=== PATIENT | female | born 1980 | race Caucasian/White ===

== ENCOUNTER 2024-09-18 18:27 | Emergency (ER) | payer OTHER, SELFPAY ==
--- NOTE | ~2024-09-18 | CT_ITS ---
EXAMINATION: CT HEAD WITHOUT CONTRAST CT CERVICAL SPINE WITHOUT CONTRAST CLINICAL INFORMATION: Posterior head strike, neck pain COMPARISON: None TECHNIQUE: A noncontrast CT of the head and a noncontrast CT of the cervical spine with sagittal and coronal reformats. This CT examination was performed using dose optimization techniques as appropriate, variously including the following: *Automated exposure control *Adjustment of mA and/or kV according to patient size (this includes techniques or standardized protocols for targeted exams where dose is matched to indication/reason for exam; i.e. extremities or head) *Use of iterative reconstruction technique DLP: 984 mGy*cm FINDINGS: No intra-axial or extra-axial hemorrhage. No acute territorial infarct. Ventricles and sulci appear normal. Preservation of hartley-white matter differentiation. No mass, mass effect, or midline shift. No fracture. Partial opacification of the right maxillary sinus. The mastoid air cells and visualized paranasal sinuses are otherwise clear. Left posterior scalp hematoma. Normal alignment of the cervical spine. No fracture. No prevertebral soft tissue swelling. 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 Mild multilevel degenerative disc disease. CT/CT head/brain wo IV con IMPRESSION: 1. No acute intracranial abnormality. 2. No cervical spine fracture or traumatic subluxation. Electronically signed by: Dominick Freed MD 09/18/2024 08:18 PM EDT
--- NOTE | ~2024-09-18 | CT_ITS ---
EXAMINATION: CT HEAD WITHOUT CONTRAST CT CERVICAL SPINE WITHOUT CONTRAST CLINICAL INFORMATION: Posterior head strike, neck pain COMPARISON: None TECHNIQUE: A noncontrast CT of the head and a noncontrast CT of the cervical spine with sagittal and coronal reformats. This CT examination was performed using dose optimization techniques as appropriate, variously including the following: *Automated exposure control *Adjustment of mA and/or kV according to patient size (this includes techniques or standardized protocols for targeted exams where dose is matched to indication/reason for exam; i.e. extremities or head) *Use of iterative reconstruction technique DLP: 984 mGy*cm FINDINGS: No intra-axial or extra-axial hemorrhage. No acute territorial infarct. Ventricles and sulci appear normal. Preservation of hartley-white matter differentiation. No mass, mass effect, or midline shift. No fracture. Partial opacification of the right maxillary sinus. The mastoid air cells and visualized paranasal sinuses are otherwise clear. Left posterior scalp hematoma. Normal alignment of the cervical spine. No fracture. No prevertebral soft tissue swelling. 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 Mild multilevel degenerative disc disease. CT/CT cervical spine wo IV con IMPRESSION: 1. No acute intracranial abnormality. 2. No cervical spine fracture or traumatic subluxation. Electronically signed by: Dominick Freed MD 09/18/2024 08:18 PM EDT
[2024-09-18 18:34] VITALS: BP 158/82; PULSE 86; O2SAT 98
[2024-09-18 18:46] VITALS: BP 129/83; PULSE 75; RESP 20; TEMP 37.1; O2SAT 100; BMI 32.3
--- NOTE | 2024-09-18 18:48 | ED_ITS ---
HPI - Fall General Chief Complaint: Fall Stated Complaint: FALL HIT BACK OF HEAD ON PAVEMENT Time Seen by Provider: 09/18/24 21:55 Source: patient Limitations: no limitations History of Present Illness ED Provider: Sharon Phan PA-C HPI Narrative: 43-year-old female presents after fall. Patient was getting on her vehicle, she subsequently tripped, hitting the back of her head. She has a lump at the site. Associated headache. Denies loss of consciousness or use of blood thinners. Related Data Previous Rx's ?Medication ?Instructions ?Recorded acetaminophen 500 mg tablet 1,000 mg (2 x 500 mg) PO Q8H PRN 09/19/24 (Acetaminophen Pain Relief) pain #20 tabs ibuprofen 600 mg tablet 600 mg PO Q6H PRN pain #14 tabs 09/19/24 Allergies Allergy/AdvReac Type Severity Reaction Status Date / Time No Known Allergies Allergy Verified 09/18/24 18:47 Review of Systems Review of Systems: Yes all other systems are reviewed and are negative Constitutional: Constitutional: Denies fatigue, Denies fever(s) and Reports headache(s) ENT: Denies dizziness, Reports headache(s) and Denies neck pain Cardiovascular: Cardiovascular: Denies chest pain and Denies dyspnea Respiratory: Respiratory: Denies dyspnea Gastrointestinal: Gastrointestinal: Denies nausea and Denies vomiting Musculoskeletal: Musculoskeletal: Denies neck pain Neurologic: Denies dizziness and Reports headache(s) Endocrine: Endocrine: Denies fatigue [facility] Past Medical History Attestation statement: The following information was validated with the patient. Social History Social History Advance Directives: No Advance Directives Information Provided: No Physical Exam Vital Signs: Vital Signs: Last Vital Signs Temp 97.0 F 09/18/24 21:18 Pulse 73 09/18/24 21:18 Resp 16 09/18/24 21:18 BP 145/85 H 09/18/24 21:18 Pulse Ox 100 09/18/24 21:18 O2 Del Method Room Air 09/18/24 21:18 BMI result Body Mass Index 32.3 Const: Other: Alert, well-appearing Orientation/consciousness: patient oriented x3 Neck: Other: Full range of motion no midline tenderness Resp: Other: Nonlabored respiration Cardio: Other: Normal peripheral perfusion Skin: Other: Warm dry no rash Neuro: General: patient oriented x3, gait normal, no focal motor deficits and CN's II-XI intact bilaterally Psych: Other: calm cooperative Course Course Course Narrative: This is a Rapid Medical Examination (RME) performed by Kathya Dumont PA-C in triage. Full HPI, ROS, assessment and treatment plan per primary provider in the Main ED. 43 yo female here via EMS for eval s/p mechanical fall [employer]. 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 no LOC. no thinners. denies neck pain. no other complaints. +small hematoma to posterior head. no palpable fracture. no open wounds. Plan: ct Medications Administered Discontinued Medications Generic Name Dose Route Start Last Admin Trade Name Lucio PRN Reason Stop Dose Admin Acetaminophen 975 mg 09/18/24 22:16 09/18/24 22:34 Acetaminophen 325 Mg Tablet PO 09/18/24 22:17 975 mg ONCE ONE Administration Ibuprofen 600 mg 09/18/24 22:41 09/18/24 22:46 Ibuprofen 600 Mg Tablet PO 09/18/24 22:42 600 mg ONCE ONE Administration Medical Decision Making Medical Decision Making [facility] Narrative: 43-year-old female presents after fall. Patient was getting on her vehicle, she subsequently tripped, hitting the back of her head. She has a lump at the site. Associated headache. Denies loss of consciousness or use of blood thinners. No chronic conditions History: Per patient I have considered the following differential diagnoses: Intracranial hemorrhage, cervical spine injury, concussion Plan: Imaging ordered from triage, no acute injury. She has a contusion. She may develop symptoms of concussion, we will send with information for her to read about. CT brain and cervical spine: CT/CT head/brain wo IV con IMPRESSION: 1. No acute intracranial abnormality. 2. No cervical spine fracture or traumatic subluxation. Electronically signed by: Dominick Freed MD 09/18/2024 08:18 PM EDT Discharge Plan Discharge Clinical Impression: Contusion of scalp, Concussion without loss of consciousness Patient Disposition: Home, Self-Care Instructions: Concussion (ED), Scalp Contusion in Adults (ED) Additional Instructions: The CT scan of your brain and cervical spine were negative for acute injury. You may develop signs of a concussion, I provided you with information to read at home. To note, your symptoms can last for weeks, you need to follow up with your primary care provider. You can use [id number] ibuprofen 600 mg taken every 6 hours with food, along with [id number] Tylenol 1000 mg taken every 8 hours, for headaches. Prescriptions: New acetaminophen [Acetaminophen Pain Relief] 500 mg tablet 1,000 mg PO Q8H PRN (Reason: pain) Qty: 20 0RF ibuprofen 600 mg tablet 600 mg PO Q6H PRN (Reason: pain) Qty: 14 0RF Print Language: Sinhala
[2024-09-18 21:18] VITALS: BP 145/85; PULSE 73; RESP 16; TEMP 36.1; O2SAT 100
--- OUTSIDE RECORDS SUMMARY | 2024-09-18 21:50 | XMS_ITS | Continuity of Care Document ---
Author Organization [facility] ter Address [address] [place] [id number] Care Team Providers Care Graduate Assistant Name Role Phone Ron oRche MD Primary Care Physician Encounter [facility] Date(s): 07/30/23 - 07/30/[address] [id number]- Discharge Disposition: A-D/C Walkout Attending Physician: Not on Staff, Attending MD Admitting Physician: Not on Staff, Admitting MD Referring Physician: Not on Staff, Referring MD Allergies, Adverse Reactions, Alerts No Known Allergies Immunizations Given and Recorded Vaccine Date Status Refusal Reason tetanus/diphtheria/pertussis, acel(Tdap) 02/06/13 Given influenza virus vaccine, inactivated 1 10/03/06 Gi bry 1Admin Note: vis given Medications Breast Pump See Instructions, # 1 each, Maintenance, use as directed, 02/14/13 18:51:47 Start Date: 02/14/13 Status: Ordered Handheld Electric Breast Pump See Instructions, # 1 each, Maintenance, Use as directed, 02/14/13 22:16:59 Start Date: 02/14/13 Status: Ordered Mirena 52 mg intrauteral device See Instructions, Do not open. Bring to hospiral when you present in labor, # 1 each, 0 Refills, Soft Stop Start Date: 02/06/13 Status: Ordered oxycodone 5 mg oral tablet 1 tablet = 5 mg, By Mouth, Every 6 hours, PRN for pain, # 8 tablet, 0 Refills, Maintenance, Tablet Start Date: 02/14/13 Stop Date: 02/16/13 Status: Ordered oxycodone 5 mg oral tablet 1 tablet = 5 mg, By Mouth, Every 6 hours, PRN for pain, # 6 tablet, 0 Refills, Maintenance, Tablet Start Date: 02/14/13 Status: Ordered permethrin 5% topical cream 1 application, Topically, Once, # 60 Gm, 0 Refills, Soft Stop, 06/11/14 14:47:33, Cream Start Date: 06/11/14 Status: Ordered Multivitamins with Folic Acid 1 mg oral tablet 1 tablet, By Mouth, Daily, # 90 tablet, 2 Refills, Maintenance Start Date: 07/28/12 Stop Date: 04/24/13 Status: Ordered Problem List Condition Confirmation Course Effective Dates Status Health St atus Informant Obese class I Confirmed Active Vital Signs Most recent to oldest [Reference Range]: 1 Height 165 cm (07/30/23 1:01 AM) Weight 85.2 kg (07/30/23 1:01 AM) Oxygen Saturation [94-100 %] 100 % (07/30/23 1:01 AM) Pulse Rate [55-90 bpm] 71 bpm (07/30/23 1:01 AM) Body Mass Index [18.5-24.99 kg/m2] 31.29 kg/m2 *>HHI* (07/30/23 1:01 AM) Blood Pressure [90-138/55-84 mm Hg] 129/ 83mm Hg (07/30/23 1:01 AM) Respiratory Rate [16-30 br/min] 17 br/mi n (07/30/23 1:01 AM) Temperature [96.8-100.4 DegF] 98.3 DegF (07/30/23 1:01 AM) Mode of Delivery (Oxygen) Room air (07/30/23 1:01 AM) Blood pressure sites Arm, left (07/30/23 1:01 AM) Temperature Route Oral (07/30/23 1:01 AM) Dry Weight 85.2 kg (07/30/23 1:01 AM) Weight Obtained Via Standing scale (07/30/23 1:01 AM) Dry Weight Obtained Via Standing scale (07/30/23 1:01 AM) Patient Care team information Care Team Personnel Name: Ron Roche MD Position: [facility] Outreach Member Role: PCP Address: Address: [address] [place] [address] [facility] [place], [place] [id number] [place] [address] Care Team Related Persons Name: ROSALIE CLARK Address: home [address] [place] [id number]
[2024-09-18] MEDS: Acetaminophen 325 MG TABLET 975 MG PO (22:34)
[2024-09-18] MEDS: Ibuprofen 600 MG TABLET PO (22:46)
[2024-09-19 00:06] VITALS: BP 133/88; PULSE 76; RESP 16; TEMP 36.7; O2SAT 97
== END 2024-09-19 00:07 | disposition home or self-care (01) ==
PROVIDERS: Emergency Provider Emergency Medicine
DX: S00.03XA Contusion of scalp, initial encounter (principal); S06.0X0A Concussion without loss of consciousness, initial encounter; R51.9 Headache, unspecified; M54.2 Cervicalgia; W01.0XXA Fall on same level from slipping, tripping and stumbling without subsequent striking against object, initial encounter; Y93.89 Activity, other specified; Y92.810 Car as the place of occurrence of the external cause; Y99.8 Other external cause status
CPT/HCPCS: 70450; 72125; 99284